=== PATIENT | male | born 1965 | race Caucasian/White ===

== ENCOUNTER 2017-04-07 20:05 | Inpatient (IN) | payer OTHER ==
[~2017-04-07] VITALS: Ht 188 cm; Wt 116.6 kg
--- NOTE | ~2017-04-07 | EKG ---
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 : 1965 Requested By: Marvin Gray Order Number: [id number] MD: Jay Dave Measurements Intervals [place] Rate: 84 P: 64 KS: 174 QRS: 29 QRSD: 92 T: 159 QT: 408 QTc: 483 Interpretive Statements Sinus rhythm Left atrial enlargement Probable left ventricular hypertrophy Anterior Q waves, possibly due to LVH Nonspecific T abnormalities, lateral leads Compared to ECG 04/07/2017 20:12:03 Q waves now present Sinus tachycardia no longer present T-wave abnormality still present Electronically Signed On 04-09-2017 9:00:56 DIAGNOSTIC TECHNICIAN by Jay Dave [email or web address] <ELECTRONICALLY SIGNED> By: Jay Dave MD 04/09/17 0900 0637 0637 Jay Dave MD /EPI
--- NOTE | ~2017-04-07 | CATHLAB ---
[facility] [employer] [place] [address] INVASIVE PROCEDURE REPORT Name: CHEYENNE GARCIA Room #: 213-P ADM IN ..#: [id number] Admission: 04/07/17 Attend Phys: Mohit Cabrera MD Discharge: Date of : 69 Date of Service: 04/10/17 1443 Report #: [id number] THIS REPORT FOR: //name// APPROVED REPORT Patient Details Patient Status: In-Patient Room #: 247 The patient is a 51 year-old male Event Personnel Marvin Gray Typesetting Machine Operator/Tender, Adonay Hart RN, Cheyenne Loo Sandifer, David Monitor Procedures Performed Left Heart Cath w/or w/o Coronaries [id number] [facility] Hemostasis w/ Mynx Indication Non-STEMI , Heart failure Risk Factors Hypercholesterolemia, Hypertension, Tobacco History () Procedure Narrative The Right Groin^ was infiltrated with 1% Lidocaine subcutaneous anesthesia. A PINNACLE 6FR Sheath #[id number] sheath was inserted into the RFA^. Coronary angiography was performed using coronary diagnostic catheters. The right coronary system was accessed and visualized with a RCA catheter. The left coronary system was accessed and visualized with a LCA5FR JL5 #[id number] JL5 #[id number] catheter. The left ventricle was accessed and visualized with a PIGTAL catheter. Left ventricular/Aortic Valve gradient assessed via catheter pullback. Left ventriculogram was performed in 30 degree projection. Closure device was deployed with a 6 Fr MYNXGRIP 6/7F #[id number]. The patient tolerated the procedure well and there were no complications associated with the procedure. There was no hematoma. Intraoperative Conscious Sedation Sedation start time: 10.21 Case end Time: 10.44 Versed 2.0 mg Fluoro Time: 8.34 minutes Dose: 834 mGy Contrast Type and Amount: Visipaque 135 ml [facility] [place] [place] [address] INVASIVE PROCEDURE REPORT Name: CHEYENNE GARCIA Room #: 213-P [facility] IN M.R.#: [id number] Admission: 04/07/17 Attend Phys: Mohit Cabrera MD Discharge: Date of : 69 Date of Service: 04/10/17 1443 Report #: [id number] Coronary Angiography The patient's coronary anatomy is co- dominant. Diagnostic Cath Left Main patent vessel, with no flow-limiting lesions. LAD Moderately severe discrete stenosis in the proximal segment, 50-60%. There is mild diffuse disease in the mid and distal segments of the LAD, 20%. Diagonal 1 Severe stenosis in the proximal segment, 80%. Supplies 2 branches. Circumflex Codominant vessel with mild disease. OM1 60% stenosis in the proximal segment. OM2 70% stenosis in the proximal segment. Right Coronary Total occlusion in the proximal segment. A faint PDA is filled via collateral circulation. Ramus Moderate size caliber vessel, with mild disease in the mid segment. Left Ventriculography The left ventricle is mildly dilated in size with decreased contractility. The left ventricular ejection fraction is estimated to be 40-45%. Hemodynamics The aortic pressure is 167/95 mmHg with a mean of 90 mmHg. The left ventricular pressure is 179/19 mmHg with a mean of mmHg. The left ventricular end diastolic pressure is 35 mmHg. There was no gradient across the aortic valve upon pullback. Pullback from the left ventricle to the aorta revealed no gradient across the aortic valve. Conclusion 1. Multivessel CAD. 2. Mild to moderate global LV dysfunction. 3. Recommend CV surgical consultation. 4. Aggressive risk factor management. <ELECTRONICALLY SIGNED> By: Marvin Gray MD 04/10/17 1443 1443 1443 Marvin Gray MD /INF
--- NOTE | ~2017-04-07 | HC ---
[facility] [place] [address] CONSULTATION Name: CHEYENNE GARCIA Room #: 213-P ADM IN M.R.#: [id number] Admission: 04/07/17 Attend Phys: Mohit Cabrera MD Discharge: Date of : 69 Report #: [id number] THIS REPORT FOR: //name// CC: Mohit Cabrera [facility] physician/PCP Marvin Gray DATE OF SERVICE: 04/09/2017 REFERRING PROVIDER: Mohit Cabrera MD REASON FOR CONSULTATION: Left adrenal mass. HISTORY OF PRESENT ILLNESS: The patient is a 51-year-old male who presented with shortness of breath where he was diagnosed with congestive heart failure and hypertensive urgency. The patient has not been under the care of a physician for the past 25 years. Through the course of his workup, he underwent an echocardiogram as well as a CT scan of the chest. The patient's Troponins have elevated substantially and he was diagnosed with a non-STEMI. His CT scan of the chest was carried down through the upper abdomen and showed questionable left adrenal mass measuring nearly 3 cm in diameter. The patient is being treated by Cardiology and Pulmonology and I am asked to evaluate from a surgical standpoint as I do adrenal surgery. Currently, the patient is somnolent, but arousable and does not have any complaints at this time. PAST SURGICAL HISTORY: None prior to this admission. MEDICATIONS: None prior to this admission. ALLERGIES: No known drug allergies. SOCIAL HISTORY: The patient smokes 1 pack of cigarettes daily, drinks occasionally, but not to excess and does not use any illicit drugs. FAMILY HISTORY: Reviewed and noncontributory. REVIEW OF SYSTEMS: GENERAL: The patient denies nocturnal fevers or chills. HEENT: No change in vision, change in hearing. NECK: No swelling or difficulty swallowing. HEART: No chest pain or palpitations. LUNGS: No coughing, but does have shortness of breath. ABDOMEN: No nausea, no vomiting. GENITOURINARY: No dysuria or hematuria. ENDOCRINE: No polyuria, polydipsia. HEMATOLOGIC: No history of bleeding or easy bruising. [facility] [address] [place] [address] CONSULTATION Name: CHEYENNE GARCIA Room #: 213-P [facility] IN ..#: [id number] Admission: 04/07/17 Attend Phys: Mohit Cabrera MD Discharge: Date of : 69 Report #: [id number] EXTREMITIES: No history weakness or limited range of motion. NEUROLOGIC: No history of syncope or near syncopal episodes. SKIN AND INTEGUMENT: No history of abnormal lesions or moles. PSYCHIATRIC: No history of anxiety or depression. PHYSICAL EXAMINATION: VITAL SIGNS: Temperature from this morning was 97.5, pulse 84, respirations 19, blood pressure 150/89. He stands 6 feet 2 inches tall and weighs 274 pounds. GENERAL: Alert, once aroused with stimulation and in no acute distress. HEENT: Normocephalic, atraumatic. Pupils are equal, round, reactive to light. NECK: Supple, without lymphadenopathy. Trachea midline. HEART: Regular rate and rhythm. LUNGS: Decreased breath sounds at their bases bilaterally. ABDOMEN: Obese, soft, nontender, nondistended. GENITOURINARY: Normal external male genitalia. EXTREMITIES: No clubbing, cyanosis or edema. NEUROLOGIC: Cranial nerves 2-12 are grossly intact. PSYCHIATRIC: Normal mood and affect. SKIN AND INTEGUMENT: No abnormal lesions or moles. LABORATORY AND X-RAY DATA: CBC yesterday showed white blood cell count of 13.2 thousand, hemoglobin 11.7, platelets 176,000. Liver function enzymes were normal. Troponins have increased to 13.8. Hemoglobin A1c is 6.4. Echocardiogram shows ejection fraction of 35-40% with severe diastolic dysfunction. CT angiogram of the chest showed a possible left adrenal mass measuring 2.8 x 1.9 cm in dimension. In addition, he had mediastinal adenopathy and pulmonary edema. ASSESSMENT AND PLAN: A 51-year-old overweight male who presents with a non-ST elevation myocardial infarction, congestive heart failure and questionable diabetes mellitus with an elevated hemoglobin A1c who also has tobaccoism and is in congestive heart failure. The patient is being seen by Cardiology and is to undergo cardiac catheterization tomorrow. At this time, for the questionable adrenal mass, we will perform a dedicated CT scan of the abdomen and pelvis to further quantify. In addition, we will obtain serum and urine studies to rule out pheochromocytoma, especially in this patient with hypertensive urgency. If the patient should demonstrate a functional adrenal mass, it would likely necessitate removal which I would attempt to perform laparoscopically if at all possible. Nonetheless, we will initiate the formal workup at this time. I did spend greater than 60 minutes with the patient at the bedside, gathering his past history, performing a thorough physical exam and reviewing all of his workup thus far. [facility] [address] [place] [address] CONSULTATION Name: CHEYENNE GARCIA Room #: 213-P ADM IN M.R.#: [id number] Admission: 04/07/17 Attend Phys: Mohit Cabrera MD Discharge: Date of : 69 Report #: [id number] I sincerely appreciate this consult. I will follow closely and leave any further recommendations in the patient's chart as appropriate. <ELECTRONICALLY SIGNED> By: Ana Maria Barajas MD, FACS 04/11/17 0803 1558 Ana Maria Barajas MD, FACS /nt
--- NOTE | ~2017-04-07 | 2DMMODE ---
[facility] [address] [place] [address] 2 D/M-MODE ECHOCARDIOGRAM Name: CHEYENNE GARCIA Room #: 247-P ADM IN ..#: [id number] Admission: 04/07/17 Attend Phys: Mohit Cabrera MD Discharge: Date of : 69 Date of Service: 04/09/17 1141 Report #: [id number] THIS REPORT FOR: //name// APPROVED REPORT Study performed: 04/09/2017 09:07:22 EXAM: Comprehensive 2D, Doppler, and color-flow Echocardiogram Patient Location: ICU Room #: 247 Status: routine BSA: 2.48 BP: 176/108 mmHg Other Information Study Quality: Adequate Indications Dyspnea Elevated Troponin Chest Pain 2D Dimensions RVDd: 40.60 mm LVEF(%): 29.16 (>50%) IVSd: 13.64 (7-11mm) LVOT Diam: 23.49 (18-24mm) LVDd: 52.08 mm PWd: 13.82 (7-11mm) Ascending Ao: 36.99 (22-36mm) LVDs: 44.92 (25-40mm) Aortic Root: 33.40 mm IVC: 26.00 mm Fitch's LVEF: 29.16 % Volumes Left Atrial Volume (Systole) Single Plane 4CH: 113.80 mL Single Plane 2CH: 52.95 mL LA ESV Index: 34.00 mL/m2 Aortic Valve AoV Peak Eric.: 1.71 m/s AO Peak Gr.: 11.67 mmHg LVOT Max P.21 mmHg LVOT Max V: 1.25 m/s TAMMY Vmax: 3.16 cm2 Mitral Valve E/A Ratio: 2.4 [facility] [place] [address] [place] [address] 2 D/M-MODE ECHOCARDIOGRAM Name: CHEYENNE GARCIA Room #: 247-P [facility] IN ..#: [id number] Admission: 04/07/17 Attend Phys: Mohit Cabrera MD Discharge: Date of : 69 Date of Service: 04/09/17 1141 Report #: [id number] MV Decel. Time: 127.18 ms MV E Max Eric.: 1.10 m/s MV A Eric.: 0.46 m/s MV PHT: 36.88 ms Pulmonary Valve PV Peak Eric.: 1.03 m/s PV Peak Gr.: 4.25 mmHg Pulmonary Vein P Vein S: 0.41 m/s P Vein D: 0.65 m/s P Vein S/D Ratio: 0.63 Tricuspid Valve TR Peak Eric.: 3.28 m/s RAP Estimate: 15.00 mmHg TR Peak Gr.: 42.98 mmHg PA Pressure: 58.00 mmHg Left Ventricle The left ventricle is normal size. Mild concentric left ventricular hypertrophy. Left ventricular ejection fraction is moderately decreased. LVEF is 35-40%. Severe diastolic dysfunction is present (restrictive filling). Right Ventricle The right ventricle is normal size. Right ventricular systolic function is not well visualized. Atria Left atrium is at the upper limits of normal. Right atrium is mildly dilated. Aortic Valve The aortic valve is normal in structure. No aortic regurgitation is present. There is no aortic valvular stenosis. Mitral Valve The mitral valve is normal in structure. Trace mitral regurgitation. No evidence of mitral valve stenosis. Tricuspid Valve The tricuspid valve is normal in structure. Mild tricuspid regurgitation. PAP is estimated at 58 mmHg. Pulmonic Valve The pulmonary valve is normal in structure. Trace pulmonic [facility] [address] [place] [address] 2 D/M-MODE ECHOCARDIOGRAM Name: CHEYENNE GARCIA Room #: 247-P [facility] IN ..#: [id number] Admission: 04/07/17 Attend Phys: Mohit Cabrera MD Discharge: Date of : 69 Date of Service: 04/09/17 1141 Report #: [id number] regurgitation. Great Vessels The aortic root is normal in size. IVC is dilated and collapses <50% with inspiration. Pericardium There is no pericardial effusion. <Conclusion> The left ventricle is normal size. Mild concentric left ventricular hypertrophy. Left ventricular ejection fraction is moderately decreased. Severe diastolic dysfunction is present (restrictive filling). There is no aortic valvular stenosis. Mild tricuspid regurgitation. PAP is estimated at 58 mmHg. <ELECTRONICALLY SIGNED> By: Marvin Gray MD 04/09/17 1141 1141 114 Marvin Gray MD /INF
--- NOTE | ~2017-04-07 | HC ---
[facility] [place] [address] CONSULTATION Name: JOVITAMUSTAPHABROOKE Room #: 213-P [facility] IN ..#: [id number] Admission: 04/07/17 Attend Phys: Mohit Cabrera MD Discharge: 04/13/17 Date of : 69 Report #: [id number] THIS REPORT FOR: //name// CC: Mohit Cabrera [facility] physician/PCP Marvin Gray DATE OF SERVICE: 04/08/2017 CHIEF COMPLAINT: Possible left adrenal mass. HISTORY OF PRESENT ILLNESS: The patient is a very pleasant 51-year-old gentleman who is being seen today at the request of Dr. Cabrera for evaluation and management of possible left adrenal mass. Specifically, he presented to the Emergency Room yesterday with shortness of breath and was diagnosed with congestive heart failure. He has been hypertensive. He has not seen a doctor since he was discharged from the [employer] 24 or 25 years ago. He has not been complaining of headaches or palpitations and has no other urological symptoms. ALLERGIES: None. CHRONIC ILLNESSES: None for which he has been treated. He is hospitalized with congestive heart failure and pulmonary edema. SOCIAL HISTORY: He does smoke about a pack a day. He drinks occasionally, does not use recreational drugs. MEDICATIONS: None prior to coming into the hospital. REVIEW OF SYSTEMS: See history of present illness; other than shortness of breath, he does not have complaints. PHYSICAL EXAMINATION: GENERAL: He is a comfortable-appearing gentleman, quite pleasant. VITAL SIGNS: Temperature is 36.8, blood pressure is 160/101, pulse is 90, respirations 19. ABDOMEN: Soft without masses. LABORATORY DATA: White count 13,200, hemoglobin 11.7, hematocrit is 34.3, platelets 176,000. Sodium 137, potassium 3.6, chloride 103, CO2 29, BUN 18, creatinine 1.2, glucose is 219. Troponin is 3.42. BNP on admission was 6383. Chest x-ray shows cardiomegaly with vascular congestion, infiltrates suggesting pulmonary edema. CT angiogram for elevated D-dimer, shows diffuse interstitial infiltrate with pleural effusions consistent with pulmonary edema and no emboli. There is nonspecific adenopathy and a possible 2.8 x 1.9 cm left adrenal mass. [facility] [address] [place] [address] CONSULTATION Name: CHEYENNE GARCIA Room #: 213-[facility] [place] [facility].#: [id number] Admission: 04/07/17 Attend Phys: Mohit Cabrera MD Discharge: 04/13/17 Date of : 69 Report #: [id number] IMPRESSION: 1. Possible left adrenal mass. 2. Hypertension in the face of what appears to be a cardiopulmonary event. PLAN: 1. I would leave cardiopulmonary management to his medical doctors and Cardiology team. 2. I would recommend starting with a CT of the abdomen and pelvis with and without contrast to complete imaging. Further recommendations to follow based on CT findings. If he remains hypertensive and there is a thought that he has further adrenal workup, he most likely would need an cloth examiner hand as well as appropriate blood and urine studies. <ELECTRONICALLY SIGNED> By: Cheyenne Carrasco MD 05/06/17 0658 0811 0900 Cheyenne Carrasco MD /nt
--- NOTE | ~2017-04-07 | EKG ---
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 : 1965 Requested By: Gal Jacome Order Number: [id number] MD: Marvin Gray Measurements Intervals [place] Rate: 115 P: 67 CT: 162 QRS: 15 QRSD: 98 T: QT: 341 QTc: 472 Interpretive Statements Sinus tachycardia Left atrial enlargement Left ventricular hypertrophy Nonspecific T abnormalities, lateral leads No previous ECG available for comparison Electronically Signed On 04-08-2017 9:24:24 CASTING ROOM OPERATOR by Marvin Gray [email or web address] <ELECTRONICALLY SIGNED> By: Marvin Gray MD 04/08/17 0924 11 11 Marvin Gray MD /AQUILINO
--- NOTE | ~2017-04-07 | HC ---
[facility] [place] [place] [address] CONSULTATION Name: JOVITAMONEFrantzBROOKE Room #: 247-P ADM IN M.R.#: [id number] Admission: 04/07/17 Attend Phys: Mohit Cabrera MD Discharge: Date of : 69 Report #: [id number] THIS REPORT FOR: //name// CC: Mohit Cabrera [facility] physician/PCP Marvin Gray DATE OF SERVICE: 04/08/2017 INDICATION: Congestive heart failure. HISTORY OF PRESENT ILLNESS: This is a 51-year-old male with no significant past medical history presenting with increasing shortness of breath for the past several weeks. He did not seek medical attention due to lack of insurance and has not seen a doctor in over 25 years. According to the patient, he has had progressive dyspnea recently with the development of orthopnea. He has had some mild fever and chills. There is no history of chest pains, diaphoresis, palpitations, diarrhea or vomiting. In the ER, he was diagnosed with congestive heart failure and started on IV Lasix. He has had a good urine output with symptomatic relief of his dyspnea. PAST MEDICAL HISTORY: Denies diabetes, but has not seen a doctor in over 25 years. ALLERGIES: None. MEDICATIONS AT HOME: None. SOCIAL HISTORY: Positive tobacco use, 1 pack per day. FAMILY HISTORY: Unknown as he was adopted. REVIEW OF SYSTEMS: A full 10-point review of systems performed. Only the pertinent positives and negatives are described in the HPI. PHYSICAL EXAMINATION VITAL SIGNS: Blood pressure initially was 220/80, now at 160/80 mmHg, heart rate is 100 beats per minute. GENERAL APPEARANCE: A mildly overweight male in no acute respiratory distress. HEAD AND EYES: Normocephalic. Sclerae are anicteric. ENT: Moist. NECK: Supple. LUNGS: Bibasilar crackles. CARDIAC: Distant heart sounds, S1, S2 positive. ABDOMEN: Soft, nontender. EXTREMITIES: No cyanosis, at least 1+ bilateral lower extremity edema. [facility] [address] [place] [address] CONSULTATION Name: CHEYENNE GARCIA Room #: [facility] IN ..#: [id number] Admission: 04/07/17 Attend Phys: Mohit Cabrera MD Discharge: Date of : 69 Report #: [id number] ECG reveals sinus tachycardia, LVH with nonspecific ST segment abnormalities. LABORATORY VALUES: White count 13.2, hemoglobin is 11.7, sodium is 137, creatinine is 1.2. Peak troponin is 3.42. ASSESSMENT AND PLAN: 1. Congestive heart failure, possibly related to hypertension versus ischemia related. Continue with IV Lasix, we will increase the dose to 80 mg twice a day. Strict I's and O's should be maintained. He will need an echocardiogram to assess the LV systolic function. 2. Non-ST elevation myocardial infarction, troponin of 3.42. He will need a cardiac catheterization once his respiratory status is stabilized. Continue with aspirin therapy. 3. Hypertension/uncontrolled, we will start the patient on an ELIA inhibitor and carvedilol. 4. Hypercholesterolemia, start Lipitor. 5. Tobacco use, complete smoking cessation is recommended. <ELECTRONICALLY SIGNED> By: Marvin Gray MD 04/08/17 1411 0833 0848 Marvin Gray MD /nt
--- NOTE | ~2017-04-07 | HC ---
[facility] [place] [address] CONSULTATION Name: JOVITACHEYENNE LUCIANO J Room #: 213-P ADM IN M.R.#: [id number] Admission: 04/07/17 Attend Phys: Mohit Cabrera MD Discharge: Date of : 69 Report #: [id number] THIS REPORT FOR: //name// CC: Mohit Cabrera FAM physician/PCP Marvin Gray PRIMARY PHYSICIAN: None. REFERRAL PHYSICIAN: Trevin Jin MD REASON FOR REFERRAL: Mediastinal adenopathy, left adrenal mass, and tobacco abuse. HISTORY OF PRESENT ILLNESS: The patient is a 51-year-old white male who presented to the emergency room with shortness of breath. A pulmonary consultation was requested regarding an abnormal chest CT. The patient states that he has not seen a physician for the last 25 years. He does not know of any underlying medical problems that he knows of. He states he has been ill for the past month. He had a cold. One day prior to presentation, the patient became acutely short of breath. He also complained of chest pain. For that reason presented to the emergency room. The patient smokes about a pack a day and has done so for most of his life. Otherwise, denies any other illicit drug use. CT chest angiogram was performed on admission. This showed evidence of mild increase in interstitial markings, small bilateral pleural effusions, mild nonspecific mediastinal adenopathy, possible left adrenal mass measuring 2.8 x 1.9 cm in diameter. The patient is also found to be hypertensive on this admission. PAST MEDICAL HISTORY: Otherwise, unremarkable as mentioned above. PAST SURGICAL HISTORY: Negative. ALLERGIES: None to medications. HOME MEDICATIONS: None. FAMILY HISTORY: Father , he had colon cancer. He is a Indian. Mother in good health. SOCIAL HISTORY: He is , has children, they are in good health. Tobacco history as mentioned above. He drinks rarely. [facility] [address] [place] [address] CONSULTATION Name: CHEYENNE GARCIA J Room #: 213-P [facility] IN [facility]#: [id number] Admission: 04/07/17 Attend Phys: Mohit Cabrera MD Discharge: Date of : 69 Report #: [id number] REVIEW OF SYSTEMS: As mentioned above, otherwise 10-point system review negative. PHYSICAL EXAMINATION: GENERAL: He is awake, alert, in no apparent distress. VITAL SIGNS: Temperature is 98.4 degrees Fahrenheit, pulse is 78, respiratory rate is 18, blood pressure 160/107 mmHg, and saturation is 97% on room air. HEENT: Normocephalic, atraumatic. NECK: Supple without any lymphadenopathy or thyromegaly. CHEST: Breath sounds are relatively clear without any obvious rales or wheezes. CARDIOVASCULAR: Normal S1, S2. There are no murmurs or gallops. There is no JVD. There is no carotid bruit. Pulses are 2+/4+ bilaterally. ABDOMEN: Soft, nontender, no organomegaly or masses felt. GENITOURINARY: Deferred. RECTAL: Deferred. EXTREMITIES: There is no edema, cyanosis, or clubbing. LABORATORY DATA: CT chest angiogram as mentioned above. The patient just had a cardiac catheterization, results are pending. Echocardiogram showed normal LV size, mild left ventricular hypertrophy, ejection fraction is mildly reduced, severe diastolic dysfunction, pulmonary artery pressure measuring 58 mmHg. Sodium 143, potassium 3.6, chloride 103, CO2 of 31, BUN is 23, creatinine is 1.4. Liver function enzymes mildly abnormal. Albumin 3.4. WBC 8700, hemoglobin 11.9, platelets are normal. Arterial blood gas revealed pH 7.31, pCO2 of 40, pO2 of 82 on FiO2 40%. IMPRESSION: 1. Abnormal chest CT in this 51-year-old white male. Review of the chest CT shows mildly increased interstitial markings including septal lines along with small bilateral pleural effusion, mild mediastinal adenopathy. This likely suggest acute on chronic diastolic heart failure. Mild mediastinal adenopathy may be reactive. Pneumonia is felt to be less likely. 2. Left adrenal mass in this 51-year-old white male with mildly severe hypertension, renal insufficiency. Agree with workup for possible pheochromocytoma. 3. Tobacco abuse. CT chest also shows subtle changes suggestive of bullous changes. Underlying chronic obstructive pulmonary disease is likely. 4. Non-ST wave elevation myocardial infarction, elevated troponin up to 13, status post cardiac catheterization showing multivessel disease. 5. Hypertension, apparently new, mildly severe. Please see above comments. Need to also consider along with pheochromocytoma, renovascular hypertension. RECOMMENDATION AND DISCUSSION: Agree with diuresis for treatment of heart failure. Also, will need aggressive hypertension control. Workup for possible pheochromocytoma. The patient may need a CT needle biopsy. General surgery has [address] [address] CONSULTATION Name: CHEYENNE GARCIA Room #: 213-P [facility] IN M.R.#: [id number] Admission: 04/07/17 Attend Phys: Mohit Cabrera MD Discharge: Date of : 69 Report #: [id number] been consulted. In regards to the mild mediastinal adenopathy, I will reassess his mediastinum following aggressive diuresis with a followup CT chest. I do not think this mediastinal adenopathy pathologic in nature. Smoke cessation is recommended. If coronary artery revascularization surgery is contemplated, baseline pulmonary functions will be helpful. Thank you for this consultation. <ELECTRONICALLY SIGNED> By: Elio Rojas MD 04/12/17 1426 1413 1859 Elio Rojas MD /nt
[2017-04-07 20:06] VITALS: BP 220/77
[2017-04-07 20:21] LABS: BE(vivo) -5.7 mmol/L (-2 to +3); PCO2 40.1 mmHg (35.0-45.0); PO2 82.3 mmHg (80.0-100.0); sO2 95.3 % (92.0-98.0)
[2017-04-07 20:22] LABS: pH 7.316 (7.360-7.450)
[2017-04-07 20:24] LABS: ABSOLUTE NEUTROPHILS 11.6 thou/uL (1.4-8.2); BASOPHILS 0.5 % (0.0-2.0); EOSINOPHILS 1.3 % (0.0-3.0); HEMATOCRIT 40.4 % (42.0-52.0); HEMOGLOBIN 13.6 gm/dL (14.0-18.0); LYMPHOCYTES 14.3 % (24.0-44.0); MCH 29.6 pg (26.0-34.0); MCHC 33.7 g/dL (28.0-37.0); MCV 87.9 fL (80.0-100.0); MONOCYTES 3.9 % (1.0-8.0); PLATELET COUNT 250 thou/uL (150-400); RBC 4.59 mil/uL (4.50-6.00); WBC 14.5 thou/uL (4.0-11.0)
[2017-04-07 20:39] LABS: CALCIUM 8.9 mg/dL (8.5-10.1); CREATININE 1.5 mg/dL (0.7-1.3); POTASSIUM 3.8 mmol/L (3.5-5.1)
[2017-04-07 20:53] LABS: ALBUMIN 4.2 g/dL (3.4-5.0); DIRECT BILIRUBIN 0.1 mg/dL (<0.1-0.3); TOTAL BILIRUBIN 0.7 mg/dL (<0.1-1.0); TOTAL PROTEIN 7.1 g/dL (6.4-8.2)
[2017-04-07 21:01] LABS: TROPONIN-I 0.19 ng/mL (<0.06)
[2017-04-07 21:50] VITALS: BP 210/154
[2017-04-08] VITALS (49 sets, daily range): BP systolic 119–205; BP diastolic 70–129
[2017-04-08 03:43] LABS: HEMATOCRIT 34.3 % (42.0-52.0); HEMOGLOBIN 11.7 gm/dL (14.0-18.0); MCH 29.4 pg (26.0-34.0); MCHC 34.2 g/dL (28.0-37.0); RBC 3.99 mil/uL (4.50-6.00); RDW 14.6 % (10.5-14.5); WBC 13.2 thou/uL (4.0-11.0)
[2017-04-08 04:04] LABS: ALBUMIN 3.4 g/dL (3.4-5.0); CALCIUM 8.3 mg/dL (8.5-10.1); CREATININE 1.2 mg/dL (0.7-1.3); POTASSIUM 3.6 mmol/L (3.5-5.1); TOTAL BILIRUBIN 0.6 mg/dL (<0.1-1.0); TOTAL PROTEIN 6.1 g/dL (6.4-8.2)
[2017-04-08 04:11] LABS: TROPONIN-I 3.42 ng/mL (<0.06)
[2017-04-08 04:51] LABS: CHOLESTEROL 163 mg/dL (<200); HDL CHOLESTEROL 35 mg/dL (>40); LDL CHOLESTEROL 121 mg/dL (<100); TC:HDL 4.7 Ratio (Not establshd); TRIGLYCERIDE 39 mg/dL (<150); VLDL 8 mg/dL (<40)
[2017-04-08 04:56] LABS: SERUM ASSESSMENT Clear
[2017-04-08 15:40] LABS: MAGNESIUM 1.7 mg/dL (1.8-2.4); POTASSIUM 3.8 mmol/L (3.5-5.1)
[2017-04-08 20:16] LABS: MAGNESIUM 1.8 mg/dL (1.8-2.4); POTASSIUM 3.5 mmol/L (3.5-5.1)
[2017-04-09] VITALS (23 sets, daily range): BP systolic 123–176; BP diastolic 66–115
[2017-04-09 04:25] LABS: CALCIUM 8.2 mg/dL (8.5-10.1); CREATININE 1.4 mg/dL (0.7-1.3); POTASSIUM 3.8 mmol/L (3.5-5.1)
[2017-04-09 09:09] LABS: GLYCOHEMOGLOBIN (HGB A1C) 6.4 % (4.8-5.6)
[2017-04-10] VITALS (24 sets, daily range): BP systolic 129–172; BP diastolic 66–118
[2017-04-10 04:17] LABS: HEMATOCRIT 35.3 % (42.0-52.0); HEMOGLOBIN 11.9 gm/dL (14.0-18.0); MCH 29.5 pg (26.0-34.0); MCHC 33.9 g/dL (28.0-37.0); MCV 87.2 fL (80.0-100.0); RBC 4.04 mil/uL (4.50-6.00); RDW 14.9 % (10.5-14.5); WBC 8.7 thou/uL (4.0-11.0)
[2017-04-10 04:34] LABS: CALCIUM 8.4 mg/dL (8.5-10.1); CREATININE 1.4 mg/dL (0.7-1.3); POTASSIUM 3.6 mmol/L (3.5-5.1)
[2017-04-10 06:24] LABS: APTT 39.2 Seconds (24.5-32.8); INR 1.1; PROTIME 11.4 Seconds (9.3-11.4)
[2017-04-11] VITALS (7 sets, daily range): BP systolic 125–178; BP diastolic 64–101
[2017-04-11 03:30] LABS: HEMOGLOBIN 12.6 gm/dL (14.0-18.0); MCH 29.4 pg (26.0-34.0); MCHC 33.9 g/dL (28.0-37.0); MCV 86.8 fL (80.0-100.0); RBC 4.26 mil/uL (4.50-6.00); RDW 14.7 % (10.5-14.5); WBC 9.6 thou/uL (4.0-11.0)
[2017-04-11 03:45] LABS: CALCIUM 8.6 mg/dL (8.5-10.1); CREATININE 1.1 mg/dL (0.7-1.3); POTASSIUM 3.5 mmol/L (3.5-5.1)
[2017-04-11 05:30] LABS: URINE BILIRUBIN NEGATIVE (Negative); URINE BLOOD NEGATIVE (Negative); URINE CLARITY CLEAR; URINE COLOR YELLOW; URINE GLUCOSE-RANDOM* NEGATIVE (Negative); URINE KETONES NEGATIVE (Negative); URINE LEUKOCYTES NEGATIVE (Negative); URINE NITRITE NEGATIVE (Negative); URINE PROTEIN (DIPSTICK) NEGATIVE (Negative); URINE UROBILINOGEN 0.2 E.U./dl (0.2-1.0)
[2017-04-12 03:52] LABS: CALCIUM 8.6 mg/dL (8.5-10.1); CREATININE 1.1 mg/dL (0.7-1.3); POTASSIUM 3.5 mmol/L (3.5-5.1)
[2017-04-12 04:32] VITALS: BP 145/79
[2017-04-12 08:00] VITALS: BP 150/95
[2017-04-12 12:00] VITALS: BP 124/75
[2017-04-12 12:17] VITALS: BP 124/75
[2017-04-12 16:00] VITALS: BP 129/84
[2017-04-12 19:14] VITALS: BP 125/73
[2017-04-13 00:03] VITALS: BP 126/82
[2017-04-13 03:41] VITALS: BP 128/72
[2017-04-13 07:01] VITALS: BP 150/105
[2017-04-13 10:19] VITALS: BP 128/88
[2017-04-13 11:35] VITALS: BP 126/86
[2017-04-13] MEDS ORDERED: ATORVASTATIN CA40 MG PO (12:15)
[2017-04-13] MEDS ORDERED: CARVEDILOL25 MG PO (12:15)
[2017-04-13] MEDS ORDERED: AMLODIPINE BESY10 MG PO (12:16)
[2017-04-13] MEDS ORDERED: BENAZEPRIL HCL40 MG PO (12:16)
[2017-04-13] MEDS ORDERED: SPIRONOLACTONE25 M1 PO (12:18)
[2017-04-13] MEDS ORDERED: ASPIR 8181 MG PO (12:19)
[2017-04-13] MEDS ORDERED: LASIX 40 MG TAB40 M1 PO (12:19)
[2017-04-13 13:12] VITALS: BP 124/75
[2017-04-17 18:10] LABS: METANEPHRINE-PL 13 pg/mL (0-62); NORMETANEPHRINE - PL 85 pg/mL (0-145)
[2017-04-18 06:07] LABS: URINE DOPAMINE 313 ug/L (Undefined); URINE EPINEPHRINE 7 ug/L (Undefined); URINE NOREPINEPHRINE 99 ug/L (Undefined)
== END 2017-04-13 14:34 | disposition home or self-care (01) | DRG 280 ==
LOC: ER 20:05 → ICU 21:08 → EROBS 21:08 → ICU 21:51 → 2N 04-10 10:55
PROVIDERS: Hospitalist; Internal Medicine; Internal Medicine Cardiovascular Disease; Internal Medicine Pulmonary Disease; Nurse Practitioner; Nurse Practitioner Family; Nurse Practitioner Gerontology
PROC: B211YZZ Fluoroscopy of Multiple Coronary Arteries using Other Contrast (ICD-10-PCS; principal; 2017-04-10)
PROC: B215YZZ Fluoroscopy of Left Heart using Other Contrast (ICD-10-PCS; principal; 2017-04-10)
PROC: 4A023N7 Measurement of Cardiac Sampling and Pressure, Left Heart, Percutaneous Approach (ICD-10-PCS; principal; 2017-04-10)
DX: I21.4 Non-ST elevation (NSTEMI) myocardial infarction (principal); I50.41 Acute combined systolic (congestive) and diastolic (congestive) heart failure; N17.9 Acute kidney failure, unspecified; I16.1 Hypertensive emergency; F17.210 Nicotine dependence, cigarettes, uncomplicated; I11.0 Hypertensive heart disease with heart failure; E78.00 Pure hypercholesterolemia, unspecified; I16.0 Hypertensive urgency; E78.5 Hyperlipidemia, unspecified; E11.9 Type 2 diabetes mellitus without complications; I25.10 Atherosclerotic heart disease of native coronary artery without angina pectoris; I25.5 Ischemic cardiomyopathy; E27.9 Disorder of adrenal gland, unspecified; Z86.711 Personal history of pulmonary embolism; Z79.82 Long term (current) use of aspirin; Z71.6 Tobacco abuse counseling; Z79.899 Other long term (current) drug therapy; Z80.0 Family history of malignant neoplasm of digestive organs
CPT/HCPCS: 10078; 10081